=== PATIENT | male | born 1960 | race Caucasian/White ===

== ENCOUNTER → 2017-01-19 13:18 | Day surgery (SDC) | payer MEDICARE, OTHER ==
[~2017-01-19] VITALS: Ht 175.3 cm; Wt 91.8 kg
--- NOTE | ~2017-01-19 | OP ---
PATIENT NAME: MELISSA PLATT MEDICAL RECORD: [id number] :58 LOCATION:[facility] ADMISSION DATE: SURGEON: ALYSIA GALLAGHER DO DATE OF OPERATION: 01/19/2017 PROCEDURE: EGD. INDICATIONS FOR PROCEDURE: Esophageal variceal screening. SCOPE: Olympus video gastroscope. MEDICATIONS: Propofol 150 mg IV per anesthesia. ESTIMATED BLOOD LOSS: None. COMPLICATIONS: None. FINDINGS: Informed consent was given. The patient was made comfortable with the above medication. After reaching an adequate level of sedation by slow IV push, the patient was placed on his left side. The endoscope was then advanced under direct visualization. In the hypopharynx, there was a lesion encountered on the arytenoid that was approximately 1 cm in size. No biopsies were taken. This was proximal to the cords and the patient's INR status is unknown. The scope was advanced beyond this site, beyond the cricopharyngeus into the esophagus. The upper esophagus appeared normal. There was evidence of grade I to grade II esophageal varices in the middle and distal thirds of the esophagus. There were no bleeding stigmata. No bands were placed on this examination. There was some moderate LA class B reflux-induced esophagitis present at the GE junction. The endoscope was advanced beyond the GE junction into the stomach and retroflexed to view the cardia, where a small sliding hiatal hernia was present. The fundus and body of the stomach appeared normal, without evidence of varices. The endoscope was advanced down to the antrum and prepyloric region where some granularity and erythema was present, consistent with gastritis. The endoscope was advanced beyond the pylorus into the duodenum where the bulb and second portion of the duodenum appeared normal. The endoscope was then withdrawn back up into the hypopharynx and 2 more pictures were taken for photodocumentation of the arytenoid tumor. The scope was withdrawn from the patient. The patient tolerated the procedure well and there were no complications. IMPRESSION: 1. Arytenoid tumor of unknown etiology. No biopsies were taken. 2. Grade I-II esophageal varices without bleeding stigmata. No bands were placed on this examination. 3. ____ LA class B, reflux-induced esophagitis. 4. Small sliding hiatal hernia. 5. Erythema and granularity of the antrum and prepyloric region in the stomach consistent with possible gastritis. PLAN AND RECOMMENDATIONS: 1. Discharge home when recovery parameters are met. 2. GERD diet and reflux precautions. 3. Referral to ENT for evaluation of arytenoid tumor. 4. Protonix 40 mg daily times 8 weeks for the esophagitis and gastritis. 5. Repeat EGD in 1 year for surveillance of esophageal varices. OPERATIVE REPORT [id number] MELISSA PLATT 6. Follow up in GI clinic as needed. TRANSINT:[id number] Voice Confirmation ID: [id number] DOCUMENT ID: [id number] ALYSIA GALLAGHER DO CC: [id number] DICTATION DATE: 01/19/17 1614 [employer] MANAGER: 01/20/17 0137 [facility] 01/19/17 [id number] [place] [address]
[2017-01-19 14:26] LABS: BASOPHILS 0.4 % (0-2); EOSINOPHILS 4.8 % (0-7); HEMATOCRIT 49.4 % (42.0-54.0); HEMOGLOBIN 16.6 g/dL (13.5-17.5); IMMATURE GRANULOCYTES 0.3 % (0-5); LYMPHOCYTES 32.9 % (15-50); MCH 29.8 pg (26.0-34.0); MCHC 33.6 g/dL (31.0-37.0); MCV 88.7 fL (80.0-100.0); MEAN PLATELET VOLUME 10.2 fL (7.4-10.4); MONOCYTES 8.1 % (2-11); NEUTROPHILS 53.5 % (40-80); PLATELET COUNT 225 10x3/uL (130-400); RBC 5.57 10x6/uL (4.20-6.10); RDW 13.1 % (11.5-14.5); WBC 7.4 10x3/uL (4.8-10.8)
[2017-01-19 14:40] LABS: ALBUMIN 4.1 g/dL (3.4-5.0); ANION GAP 14.2 mmol/L (8-16); BILIRUBIN - TOTAL 0.82 mg/dL (0.2-1.3); CALCIUM 9.4 mg/dL (8.5-10.1); CARBON DIOXIDE 28.9 mmol/L (21.0-32.0); CREATININE - SERUM 1.1 mg/dL (0.6-1.3); POTASSIUM - SERUM 4.1 mmol/L (3.5-5.1); PROTEIN - SERUM 8.1 g/dL (6.4-8.2)
[2017-01-19 15:06] LABS: APTT 28.5 SECONDS (22.8-39.4); INR 0.93 (0.85-1.17); PROTIME 12.3 SECONDS (11.6-15.0)
[2017-01-19 15:14] VITALS: BP 137/84; Ht 175.3 cm; Wt 91.8 kg
--- NOTE | 2017-01-19 16:57 | NUR ---
1620-RECD TO ROOM FROM GI LAB. DR GALLAGHER HERE TO REPORT FINDINGS. 1630-DR UREÑA'S OFFICE CLOSED. 1645-IV D/C AND DRESSED. D/C INSTRUCTIONS REVIEWED. 1650-D/C VIA WHEELCHAIR TO CAR WITH ADULT [employer] STAFF OFFICER.
== END | disposition home or self-care (01) ==
LOC: D.OPS 13:18
PROVIDERS: Anesthesiology
DX: D49.1 Neoplasm of unspecified behavior of respiratory system (principal); I85.00 Esophageal varices without bleeding; K21.0 Gastro-esophageal reflux disease with esophagitis; K44.9 Diaphragmatic hernia without obstruction or gangrene

== ENCOUNTER 2018-02-26 05:31 | Day surgery (SDC) | payer MEDICARE ==
[~2018-02-26] VITALS: Ht 175.3 cm; Wt 93.0 kg
--- NOTE | ~2018-02-26 | OP ---
PATIENT NAME: MELISSA PLATT MEDICAL RECORD: [id number] :58 LOCATION:[facility] ADMISSION DATE: SURGEON: ALYSIA GALLAGHER DO DATE OF OPERATION: 02/26/2018 PROCEDURE: EGD. INDICATION FOR PROCEDURE: History of esophageal varices without bleeding. His last surveillance endoscopy was on 01/19/2017 and no bands were placed on that examination. SCOPE: Olympus video gastroscope. MEDICATIONS: Propofol 150 mg IV per anesthesia. ESTIMATED BLOOD LOSS: None. COMPLICATIONS: None. FINDINGS: Informed consent was given. The patient was made comfortable with the above medication. After reaching an adequate level of sedation by slow IV push, the patient was placed on his left side. The endoscope was advanced under direct visualization through the mouth to the second portion of the duodenum. In the hypopharynx, there was a lesion that was previously visualized involving the arytenoid. This lesion measures approximately 1 cm in total size and appears vascular. It does not appear changed in size or characteristics since the past year when it was initially seen. The endoscope was advanced beyond the cricopharyngeus into the esophagus. There were grade I esophageal varices without bleeding stigmata visualized in the distal esophagus. There was evidence of LA class B reflux-induced esophagitis with a few small superficial linear ulcerations. The endoscope was advanced beyond the GE junction in the stomach and retroflexed to view the cardia where a very small sliding hiatal hernia was present. The fundus and body of the stomach appeared normal. As you approached the antrum and prepyloric region, there is some erythema and granularity consistent with possible gastritis. The endoscope was advanced beyond the pylorus into the duodenum. The entire examined duodenum appeared normal. The endoscope was then withdrawn from the patient. The patient tolerated the procedure well and there were no complications. IMPRESSION: 1. Arytenoid lesion of unknown etiology or significance. The patient has been referred to ENT in the past and has an appointment coming up. The lesion has not changed size or characteristics in the past year. 2. Grade I esophageal varices without bleeding stigmata in the distal esophagus. No bands were placed on this examination. 3. LA class B reflux-induced esophagitis. 4. Small sliding hiatal hernia. 5. Erythema and granularity of the antrum and prepyloric region consistent with possible gastritis. PLAN AND RECOMMENDATIONS: 1. Discharge home when recovery parameters are met. 2. GERD diet and reflux precautions. 3. Maintain appointment with ENT for evaluation of the arytenoid lesion. 4. Protonix 40 mg daily for 8 weeks, then reduce to 20 mg daily based on the OPERATIVE REPORT [id number] MELISSA PLATT reflux that is continuously seen on these examinations. 5. Repeat EGD in 1 year for surveillance of esophageal varices. TRANSINT:[id number] Voice Confirmation ID: [id number] DOCUMENT ID: [id number] ALYSIA GALLAGHER DO at 1255 CC: [id number] DICTATION DATE: 02/26/18 0805 D[employer]ENON[employer] SETTER: 02/26/18 0923 [facility] 02/26/18 [id number] [place] [address]
[2018-02-26 05:52] LABS: HEMOGLOBIN 16.7 g/dL (13.5-17.5); MCH 30.4 pg (26.0-34.0); MCHC 34.8 g/dL (31.0-37.0); MCV 87.4 fL (80.0-100.0); RBC 5.49 10x6/uL (4.20-6.10); RDW 13.4 % (11.5-14.5); WBC 10.1 10x3/uL (4.8-10.8)
[2018-02-26 06:21] VITALS: Ht 175.3 cm; Wt 93.0 kg
[2018-02-26 06:24] LABS: APTT 30.7 SECONDS (22.8-39.4); INR 0.94 (0.85-1.17); PROTIME 12.2 SECONDS (11.6-15.0)
[2018-02-26 06:31] LABS: ALBUMIN 3.5 g/dL (3.4-5.0); ALKALINE PHOSPHATASE 103 U/L (46-116); ALT (SGPT) 25 U/L (10-68); BILIRUBIN - TOTAL 0.32 mg/dL (0.2-1.3); CALC OSMOLALITY 277 mosm/kg (275-300); CALCIUM 8.2 mg/dL (8.5-10.1); CARBON DIOXIDE 27.5 mmol/L (21.0-32.0); CHLORIDE - SERUM 102 mmol/L (98-107); GLUCOSE 103 mg/dL (74-106); POTASSIUM - SERUM 3.7 mmol/L (3.5-5.1); PROTEIN - SERUM 7.7 g/dL (6.4-8.2); SODIUM 138 mmol/L (136-145); UREA NITROGEN 18 mg/dL (7-18); eGFR NON AFRICAN AMERICAN 81 mL/min (90-120)
== END 2018-02-26 09:00 | disposition home or self-care (01) ==
LOC: D.OPS 05:31
PROVIDERS: Anesthesiology
DX: I85.00 Esophageal varices without bleeding (principal); K21.0 Gastro-esophageal reflux disease with esophagitis; K44.9 Diaphragmatic hernia without obstruction or gangrene; Z01.812 Encounter for preprocedural laboratory examination